=== PATIENT | male | born 1980 | race Caucasian/White ===

== ENCOUNTER 2020-05-22 10:08 | Emergency (ER) | payer SELFPAY ==
[2020-05-22 10:14] VITALS: BP 151/91; PULSE 59; RESP 20; TEMP 36.5; O2SAT 99
--- NOTE | 2020-05-22 10:30 | W.ED.GENAD ---
Discharge Plan Disposition Patient Disposition: HOME Condition: Stable Discharge Details Clinical Impression: Hydronephrosis, Epiploic appendagitis, Kidney stone Primary Care Provider: None,None ED Provider: Newton Nielson Home Meds and New Rx's Prescriptions: New tamsulosin [Flomax] 0.4 mg capsule 0.4 mg PO DAILY Qty: 5 RF: 0 naproxen [Naprosyn] 500 mg tablet 500 mg PO BID PRNQty: 20 RF: 0 Discharge Instructions Instructions: Kidney Stones (ED) Additional Instructions: Naprosyn and Flomax as directed. Plenty of fluids to avoid dehydration. Your stone is 6 mm and may or may not pass on its own. I have placed you on the urology list and I would like you to contact their office tomorrow for prompt outpatient reevaluation. Please watch for new or worsening symptoms and return to the ER for any concerns. We also discussed the incidental finding on your CAT scan of a epiploic appendagitis, I will give you a referral to surgery as well. Contact their office at your convenience. Referrals: Ceasar Galarza MD [ [facility] STAFF PHYSICIAN] - Cherri Saleh MD [ [facility] STAFF PHYSICIAN] - Medical Decision Making 39-year-old gentleman, denies past medical history, presents to the ER reporting 3-day history of left abdominal and flank discomfort. Denies any other symptoms whatsoever. Denies fever, recent travel, sick contacts, bad food exposure. He is a rather vague and poor historian. He appears in no acute distress. Abdomen with diffuse discomfort but mild in nature to moderate palpation, certainly no rebound, rigidity or guarding. Differential includes muscle skeletal strain, pancreatitis, bowel obstruction, renal stone, pyelonephritis, atypical appendicitis, diverticulitis, etc. Will obtain IV access, give IV fluid, obtain CBC, CMP, lipase, alcohol level, urinalysis and drug screen. Laboratory values reveal a white blood cell count of 13.85 hemoglobin 16.0 hematocrit 47.5 platelet count 197. Potassium 3.8 creatinine 1.31 with a GFR greater than 60. Glucose 162. Total bili 0.3. AST 13, LFTs otherwise unremarkable. Lipase 201. Urinalysis large blood, greater than 50 red cells. Work-up certainly concerning for potential renal stone. Will give 30 IV Toradol, renal CT colic will be obtained, will then reassess. CT imaging read by radiology as a 6 mm left UPJ stone causing mild hydronephrosis. Fatty density lesion adjacent to the distal descending colon suspicious for epiploic appendagitis. Please correlate clinically. Left nephrolithiasis. I did discuss the epiploic appendagitis with Dr. Brown. Nothing to be done for this incidental finding and will treat for the 6 mm stone. Will refer to surgery if continuation of pain. Will give a single dose of Flomax now. Patient received Toradol and fluid. Upon reevaluation he is pain-free. We discussed his findings including the incidental findings on his CT. I have placed him on the urology callback list and will give him the name and number of our urologist Dr. Galarza. Patient comfortable with this plan and has no additional questions or concerns. Will provide prescription of Naprosyn and Flomax. Lab Data Lab results reviewed: Yes I reviewed the patient's lab results. Lab results narrative: Laboratory Tests Range/Units 05/22/20 05/22/20 05/22/20 10:37 10:37 10:37 WBC (4.4-10.8) 10^3/uL 13.85 H RBC (4.36-5.78) 10^6/uL 4.92 Hgb (13.5-17.5) g/dL 16.0 Hct (40.0-50.0) % 47.5 MCV (80-95) fL 96.5 H MCH (27.0-33.0) pg 32.5 MCHC (32.0-36.0) % 33.7 RDW (11.8-14.1) % 11.7 L Plt Count (130-400) 10^3/uL 197 MPV (8.0-11.0) fL 10.7 Immature Gran % 0.4 Neutrophils % 85.1 Lymphocytes % 10.8 Monocytes % 3.1 Eosinophils % 0.4 Basophils % 0.2 Nucleated RBC % % 0 Absolute Neutrophils (1.2-6.7) 10^3/uL 11.79 H Absolute Lymphocytes (1.2-3.4) 10^3/uL 1.50 Absolute Monocytes (0.1-0.8) 10^3/uL 0.43 Absolute Eosinophils (0.0-0.7) 10^3/uL 0.06 Absolute Basophils (0.0-0.2) 10^3/uL 0.03 Sodium (136-145) mmol/L 139 Potassium (3.5-5.1) mmol/L 3.8 Chloride (98-107) mmol/L 105 Carbon Dioxide (21.0-32.0) mmol/L 28.8 Anion Gap (3-11) mmol/L 5.2 BUN (7-18) mg/dL 20 H Creatinine (0.70-1.30) mg/dL 1.31 H Estimated GFR/1.73 m2 (mL/min/1.73m2) >= 60.00 Glucose (74-106) mg/dL 162 H Calcium (8.5-10.1) mg/dL 9.0 Total Bilirubin (0.2-1.0) mg/dL 0.3 AST (15-37) U/L 13 L ALT (16-63) U/L 26 Alkaline Phosphatase (46-116) U/L 111 Total Protein (6.4-8.2) g/dL 7.8 Albumin (3.4-5.0) g/dL 3.9 Lipase (73-393) U/L 201 Urine Color (Yellow) Urine Clarity (Clear) Urine pH (5-8) Ur Specific Abbot (1.005-1.025) Urine Protein (Negative) mg/dL Urine Ketones (Negative) mg/dL Urine Blood (Negative) Urine Nitrite (Negative) Urine Bilirubin (Negative) Urine Urobilinogen (Up TO 0.2) EU/dL Ur Leukocyte Esterase (Negative) Urine RBC (0-2) HPF Urine WBC Ur Epithelial Cells Urine Crystals Urine Bacteria Urine Mucus Ur Culture Indicated? Urine Glucose (Negative) mg/dL Urine Opiates Screen (Negative) Urine Methadone Screen (Negative) Ur Barbiturates Screen (Negative) Ur Tricyclics Screen (Negative) Ur Amphetamines Screen (Negative) U Benzodiazepines Scrn (Negative) Urine Cocaine Screen (Negative) Ur THC Screen (Negative) Ethyl Alcohol (<3) mg/dL < 3.0 Range/Units 05/22/20 05/22/20 10:50 10:50 WBC (4.4-10.8) 10^3/uL RBC (4.36-5.78) 10^6/uL Hgb (13.5-17.5) g/dL Hct (40.0-50.0) % MCV (80-95) fL MCH (27.0-33.0) pg MCHC (32.0-36.0) % RDW (11.8-14.1) % Plt Count (130-400) 10^3/uL MPV (8.0-11.0) fL Immature Gran % Neutrophils % Lymphocytes % Monocytes % Eosinophils % Basophils % Nucleated RBC % % Absolute Neutrophils (1.2-6.7) 10^3/uL Absolute Lymphocytes (1.2-3.4) 10^3/uL Absolute Monocytes (0.1-0.8) 10^3/uL Absolute Eosinophils (0.0-0.7) 10^3/uL Absolute Basophils (0.0-0.2) 10^3/uL Sodium (136-145) mmol/L Potassium (3.5-5.1) mmol/L Chloride (98-107) mmol/L Carbon Dioxide (21.0-32.0) mmol/L Anion Gap (3-11) mmol/L BUN (7-18) mg/dL Creatinine (0.70-1.30) mg/dL Estimated GFR/1.73 m2 (mL/min/1.73m2) Glucose (74-106) mg/dL Calcium (8.5-10.1) mg/dL Total Bilirubin (0.2-1.0) mg/dL AST (15-37) U/L ALT (16-63) U/L Alkaline Phosphatase (46-116) U/L Total Protein (6.4-8.2) g/dL Albumin (3.4-5.0) g/dL Lipase (73-393) U/L Urine Color (Yellow) Dark yellow Urine Clarity (Clear) Cloudy Urine pH (5-8) 5.5 Ur Specific Abbot (1.005-1.025) >= 1.030 H Urine Protein (Negative) mg/dL 100 H Urine Ketones (Negative) mg/dL Negative Urine Blood (Negative) Large H Urine Nitrite (Negative) Negative Urine Bilirubin (Negative) Negative Urine Urobilinogen (Up TO 0.2) EU/dL 0.2 Ur Leukocyte Esterase (Negative) Negative Urine RBC (0-2) HPF >50 H Urine WBC Not Applicable Ur Epithelial Cells Not Applicable Urine Crystals Not Applicable Urine Bacteria Not Applicable Urine Mucus Not Applicable Ur Culture Indicated? No Urine Glucose (Negative) mg/dL Negative Urine Opiates Screen (Negative) Negative Urine Methadone Screen (Negative) Negative Ur Barbiturates Screen (Negative) Negative Ur Tricyclics Screen (Negative) Negative Ur Amphetamines Screen (Negative) Positive A U Benzodiazepines Scrn (Negative) Negative Urine Cocaine Screen (Negative) Negative Ur THC Screen (Negative) Positive A Ethyl Alcohol (<3) mg/dL HPI General Mode of arrival: ambulatory. Date/Time Provider Initiated Documentation: 05/22/20 10:09. Limitations to Documentation: no limitations. Information obtained by: patient. HPI Narrative: This is a 39-year-old gentleman who denies significant past medical history, presenting to the ER complaining of left-sided abdominal pain and flank pain for the past 3 days. Pain has progressively gotten worse, severe now. Denies any other symptoms such as fever, recent illness or trauma, nausea, vomiting, diarrhea, constipation, dysuria, hematuria, radiation of pain. He tells me he had similar abdominal pain approximately 1 year ago but it resolved on its own. His pain has been constant for the last 3 days, nothing makes it better or worse. He has not taken any [id number] medications for his symptomatic control. Patient is a rather vague historian, difficult to get him to engage in his HPI. He denies drug use. Reports occasional alcohol use. Related Data Home Medications Medication Instructions Recorded Confirmed naproxen [Naprosyn] 500 mg PO BID PRN #20 tab 05/22/20 tamsulosin [Flomax] 0.4 mg PO DAILY #5 cap 05/22/20 Previous Rx's Medication Instructions Recorded naproxen [Naprosyn] 500 mg PO BID PRN #20 tab 05/22/20 tamsulosin [Flomax] 0.4 mg PO DAILY #5 cap 05/22/20 Allergies Allergy/AdvReac Type Severity Reaction Status Date / Time No Known Allergies Allergy Unverified 05/22/20 10:16 General Stated Complaint: Abd Prob ANDERS: 3 Review of Systems Constitutional Constitutional: Denies fatigue, Denies fever(s) and Denies headache(s) ENT Ears, Nose, Mouth, and Throat: Denies headache(s) Cardiovascular Cardiovascular: Denies chest pain and Denies dyspnea Respiratory Respiratory: Denies cough and Denies dyspnea Gastrointestinal Gastrointestinal: Reports abdominal pain, Denies melena, Denies hematochezia, Denies constipation, Denies diarrhea, Denies nausea and Denies vomiting Genitourinary Genitourinary: Denies hematuria, Denies difficulty urinating, Denies dysuria, Denies testicular pain and Denies urinary frequency Musculoskeletal Musculoskeletal: Denies back pain Integumentary/Breasts Skin/Breast: Denies rash Neurologic Neurologic: Denies headache(s) Endocrine Endocrine: Denies fatigue [facility] Medical History No active medical problems Surgical History No history of previous surgery Social History Smoking/Tobacco Use Status: Current every day Tobacco Type: cigarettes Smoking risk assessment performed?: Yes Alcohol Intake: current Alcohol Intake frequency: a few times a month Drug use: Daily Substance use type: marijuana Do you feel safe at home: Yes Exam Const General: cooperative, healthy appearing and no acute distress Orientation: alert, awake and oriented x3 HENMT Head: normal to inspection, normocephalic and atraumatic Mouth: moist mucous membranes Eyes General: appearance normal, both eyes and all related structures Conjunctivae: conjunctivae normal Sclera: sclerae normal Neck Neck: normal visual inspection, full ROM, no meningeal signs, trachea midline and supple Resp Effort & Inspection: normal respiratory effort and able to speak in complete sentences Auscultation: clear to auscultation bilaterally Cardio Rate: regular rate Rhythm: regular rhythm GI Inspection: normal to inspection Palpation: soft, not firm, no guarding, no pulsatile masses and tender (Diffuse left-sided abdomen and flank) with no rebound tenderness Auscultation: normal bowel sounds Back/Spine/Pelvis Back: No back tenderness Skin General skin exam: no rashes or lesions noted Neuro General: patient alert, patient awake, moves all extremities and no focal motor deficits Cognition: normal cognition Speech: speech normal Gait: normal gait Sensory Exam: no sensory deficits noted Extrem General: normal to inspection, full ROM, capillary refill normal, no pedal edema and no calf tenderness Psych Appearance: grossly normal Mental Status: mental status grossly normal Course Vital Signs Vital signs: Vital Signs Temperature 36.5 C 05/22/20 10:14 Pulse 59 L 05/22/20 10:14 Respiratory Rate 20 05/22/20 10:14 Blood Pressure 151/91 H 05/22/20 10:14 Pulse Oximetry 99 05/22/20 10:14 Temperature 36.5 C 05/22/20 10:14 Temperature Source Skin 05/22/20 10:14 Pulse 59 L 05/22/20 10:14 Respiratory Rate 20 05/22/20 10:14 Respiratory Effort Non-Labored 05/22/20 10:21 Blood Pressure 151/91 H 05/22/20 10:14 Blood Pressure Position Sitting 05/22/20 10:14 Pulse Oximetry 99 05/22/20 10:14 Oxygen Delivery Method Room Air 05/22/20 10:14 Oxygen Flow Rate 0 05/22/20 10:14 Pain Level 9 05/22/20 10:21 Comment 05/22/20 10:14
[2020-05-22 10:46] LABS: Abs Immature Grans 0.05 10^3/uL (0.0-0.06); Absolute Basophil Count 0.03 10^3/uL (0.0-0.2); Absolute Monocyte Count 0.43 10^3/uL (0.1-0.8); Basophils % 0.2; Eosinophils % 0.4; HCT 47.5 % (40.0-50.0); Immature Grans % 0.4; Lymphocytes % 10.8; MCH 32.5 pg (27.0-33.0); MCHC 33.7 % (32.0-36.0); MCV 96.5 fL (80-95); MPV 10.7 fL (8.0-11.0); Monocytes % 3.1; Neutrophils % 85.1; Nucleated RBC 0 %; Platelet Count 197 10^3/uL (130-400); RBC 4.92 10^6/uL (4.36-5.78); RDW 11.7 % (11.8-14.1); RDW-SD 41.6 fL; WBC 13.85 10^3/uL (4.4-10.8)
[2020-05-22 10:50] LABS: Absolute Eosinophil Count 0.06 10^3/uL (0.0-0.7); Absolute Neutrophil Count 11.79 10^3/uL (1.2-6.7)
[2020-05-22 10:57] LABS: ALT 26 U/L (16-63); AST 13 U/L (15-37); Albumin 3.9 g/dL (3.4-5.0); Alkaline Phosphatase 111 U/L (46-116); Anion Gap 5.2 mmol/L (3-11); BUN 20 mg/dL (7-18); Bilirubin, Total 0.3 mg/dL (0.2-1.0); CO2 28.8 mmol/L (21.0-32.0); CREATININE 1.31 mg/dL (0.70-1.30); Chloride 105 mmol/L (98-107); Glucose 162 mg/dL (74-106); Lipase 201 U/L (73-393); Potassium 3.8 mmol/L (3.5-5.1); Sodium 139 mmol/L (136-145); Total Protein 7.8 g/dL (6.4-8.2)
[2020-05-22 11:03] LABS: Bilirubin Negative (Negative); Blood Large (Negative); Clarity Cloudy (Clear); Glucose Negative (Negative); Ketones Negative (Negative); Leukocyte Esterase Negative (Negative); Nitrite Negative (Negative); Specific Gravity >= 1.030 (1.005-1.025); Urobilinogen 0.2 EU/dL (Up TO 0.2); pH 5.5 (5-8)
[2020-05-22 11:13] LABS: ETHANOL BLOOD < 3.0 mg/dL (<3)
[2020-05-22 11:14] LABS: *AMPHETAMINES SCREEN URINE POSITIVE (Negative); *BARBITURATES SCREEN URINE Negative (Negative); *BENZODIAZEPINES SCREEN URINE Negative (Negative); Cannabinoids THC POSITIVE (Negative); Cocaine Screen,Urine Negative (Negative); METHADONE URINE SCREEN Negative (Negative); OPIATES URINE SCREEN Negative (Negative); Tricyclic Antidepressants Negative (Negative)
[2020-05-22 11:18] LABS: RBC >50 HPF (0-2)
[2020-05-22 11:19] LABS: C & S Indicated? No
--- NOTE | 2020-05-22 11:30 | DI.CT_ITS ---
EXAM: CT RENAL COLIC WO CLINICAL HISTORY: Left-sided pain, hematuria. TECHNIQUE: Imaging Protocol: Axial computed tomography images with coronal and sagittal reformatted images were created and reviewed. COMPARISON: No exams were available for comparison FINDINGS: ABDOMEN: Lung Bases: Normal where visualized. Liver: Normal density. No measurable mass. Gallbladder and biliary tract: No radiodense calculus or biliary ductal dilation. Pancreas: Normal density, no abnormal calcifications or inflammatory process. Spleen: Normal. Kidneys: Normal size, contour and axis.There is a 6 mm left UPJ stone causing mild hydronephrosis. L eft nephrolithiasis is present. Adrenal glands: No mass is seen. Lymph nodes: Non-specific mildly enlarged pelvic lymph nodes. The largest measures 1 cm in short jennifer meter. Abdominal Aorta: Abdominal portion non-dilated. PELVIS: Bladder:Symmetric distention, no gross wall thickening. Bowel: No obstruction or bowel wall thickening. Appendix is unremarkable. There is a 3.8 x 2.1 cm fa t density lesion adjacent to the distal descending colon with mild surrounding inflammation suggestin g of epiploic appendagitis. Peritoneal cavity: No ascites, collection or mesenteric inflammatory response. No free air. Reproductive organs: Within normal limits. Bones: Within normal limits. Soft Tissues: Within normal limits. IMPRESSION: 1. 6 mm left UPJ stone causing mild hydronephrosis. 2. Fat density lesion adjacent to the distal descending colon suspicious for epiploic appendagitis. Please correlate clinically. 3. Left nephrolithiasis. 4. Findings were discussed with the emergency department on the date of the examination. RADIATION DOSE DELIVERED: 656.72mGy.cm Total DLP DATA REPOSITORY: All CT scans at this facility are submitted to the National Radiology Data Registry (NRDR) Dose Index Registry (DIR) with the [employer] ([employer]). RADIATION OPTIMIZATION: All CT scans at this facility use at least one of these dose optimization te chniques: automated exposure control; mA and/or kV adjustment per patient size (includes targeted exa ms where dose is matched to clinical indication); or iterative reconstruction.
[2020-05-22] MEDS: Ketorolac 30 MG/ML VIAL IVP (11:42)
[2020-05-22] MEDS: Normal Saline Flush 10 ML SYR IVP (11:43)
[2020-05-22] MEDS: Normal Saline 1,000 ML 1000 ML IV (11:43)
[2020-05-22 13:19] VITALS: BP 113/62; PULSE 83; RESP 20; TEMP 36.6; O2SAT 99
[2020-05-22 14:09] VITALS: BP 120/88; PULSE 80; RESP 16; TEMP 36.6; O2SAT 98
[2020-05-22] MEDS: Tamsulosin 0.4 MG CAPCR PO (14:11)
--- NOTE | 2020-05-22 17:40 | NUR.NOTE ---
referral to [facility].Nursing Note:
== END 2020-05-22 14:10 | disposition home or self-care (01) ==
PROVIDERS: Emergency Provider Physician Assistant
DX: N13.2 Hydronephrosis with renal and ureteral calculous obstruction (principal); K63.89 Other specified diseases of intestine
CPT/HCPCS: 80053; 80307; 83690; 96361; 96374; 99285; 74176; 80320; 81003; 81015; 85025; 99284; J1885

== ENCOUNTER 2020-05-29 11:21 | Emergency (ER) | payer SELFPAY ==
[2020-05-29 11:29] VITALS: BP 140/95; PULSE 86; RESP 18; TEMP 36.4; O2SAT 98
[2020-05-29 11:42] LABS: Bilirubin Negative (Negative); Blood Moderate (Negative); Clarity Clear (Clear); Glucose Negative (Negative); Ketones Negative (Negative); Leukocyte Esterase Negative (Negative); Nitrite Negative (Negative); Specific Gravity 1.025 (1.005-1.025); Urobilinogen 0.2 EU/dL (Up TO 0.2)
--- NOTE | 2020-05-29 11:45 | DI.US_ITS ---
EXAM: US RENAL CLINICAL HISTORY: known stone, pain returning TECHNIQUE: Ultrasound of both kidneys performed using standard protocol. COMPARISON: CT CT RENAL COLIC WO from 05/22/[address] RENAL COLIC WO from 05/22/2020 FINDINGS: RIGHT KIDNEY: Measures 10.3 cm in length. No cysts evident. Normal cortical thickness and corticomedullary differen tiation .No solid masses No intrarenal calculi nor hydronephrosis. LEFT KIDNEY: Measures 11.5 cm in length. No cysts evident. There is mild-moderate hydronephrosis and ipsilateral hydroureter ureter diameter 7 millimeters. The left UPJ calculus evident on the recent CT scan of 05/22/2020 is not seen at this location.. The left ureterovesical junction does not appear to been imaged but the left ureterovesical jet is not i dentified. The right ureterovesical jet is identified. URINARY BLADDER: Prevoid volume is 71 cc Postvoid volume is 0 cc No evidence of bladder mass nor diverticuli. IMPRESSION: 1. No significant ultrasound findings in the right kidney 2. Mild-moderate unilateral left hydronephrosis and hydroureter. Given the absence of visualization of the left ureterovesical jet, the calculus has most probably migrated distally into the pelvis 2 l evel not seen with ultrasound because of overlying bowel gas. There is no obvious calculus evident i n the urinary bladder lumen. No obvious clots in the urinary bladder lumen. DATA REPOSITORY:
[2020-05-29 12:00] LABS: Bacteria Few HPF (Negative); C & S Indicated? No; Casts Negative LPF (Negative); Crystals Negative HPF (Negative); Epithelial Cells Negative HPF (Negative); Mucus Trace (Negative); Other Cells Negative (Negative); RBC >50 HPF (0-2); WBC Negative HPF (0-5)
[2020-05-29] MEDS: Ketorolac 30 MG/ML VIAL IVP (12:13)
[2020-05-29] MEDS: Normal Saline 1,000 ML 1000 ML IV (12:13)
[2020-05-29 12:16] LABS: Abs Immature Grans 0.07 10^3/uL (0.0-0.06); Absolute Basophil Count 0.04 10^3/uL (0.0-0.2); Absolute Eosinophil Count 0.01 10^3/uL (0.0-0.7); Absolute Neutrophil Count 11.93 10^3/uL (1.2-6.7); Basophils % 0.3; Eosinophils % 0.1; HCT 44.6 % (40.0-50.0); HGB 15.2 g/dL (13.5-17.5); Immature Grans % 0.5; Lymphocytes % 10.4; MCH 31.7 pg (27.0-33.0); MCHC 34.1 % (32.0-36.0); MCV 93.1 fL (80-95); MPV 10.3 fL (8.0-11.0); Monocytes % 6.2; Neutrophils % 82.5; Nucleated RBC 0 %; Platelet Count 235 10^3/uL (130-400); RBC 4.79 10^6/uL (4.36-5.78); RDW 11.3 % (11.8-14.1); RDW-SD 38.6 fL; WBC 14.46 10^3/uL (4.4-10.8)
[2020-05-29 12:28] LABS: ALT 18 U/L (16-63); AST 10 U/L (15-37); Albumin 3.3 g/dL (3.4-5.0); Alkaline Phosphatase 100 U/L (46-116); Anion Gap 6.1 mmol/L (3-11); BUN 14 mg/dL (7-18); Bilirubin, Total 0.4 mg/dL (0.2-1.0); CO2 27.9 mmol/L (21.0-32.0); CREATININE 1.4 mg/dL (0.70-1.30); Calcium 8.8 mg/dL (8.5-10.1); Chloride 100 mmol/L (98-107); Estimated GFR 55.85 (mL/min/1.73m2); Glucose 114 mg/dL (74-106); Lipase 121 U/L (73-393); Potassium 4.1 mmol/L (3.5-5.1); Sodium 134 mmol/L (136-145); Total Protein 7.4 g/dL (6.4-8.2)
[2020-05-29 13:17] VITALS: BP 144/89; PULSE 71; RESP 16; TEMP 36.4; O2SAT 100
--- NOTE | 2020-05-29 13:56 | ED.GENADUL_ITS ---
Discharge Plan Disposition Patient Disposition: HOME Condition: Improving Discharge Details Clinical Impression: Kidney stone, Hydronephrosis Primary Care Provider: None,None ED Provider: Newton Nielson Home Meds and New Rx's Prescriptions: New tamsulosin [Flomax] 0.4 mg capsule 0.8 mg PO DAILY 5 Days Qty: 10 RF: 0 ketorolac 10 mg tablet 10 mg PO TID PRN5 Days RF: 0 Discontinued tamsulosin [Flomax] 0.4 mg capsule 0.4 mg PO DAILY Qty: 5 RF: 0 naproxen [Naprosyn] 500 mg tablet 500 mg PO BID PRNQty: 20 RF: 0 Discharge Instructions Instructions: Kidney Stones (ED) Additional Instructions: Your laboratories today do not appear to be significantly changed when compared to 1 week ago. Your ultrasound reveals increasing hydronephrosis, the stone is not visualized. There is no signs of infection. You responded very nicely to the IV Toradol and fluid. I am writing a prescription for additional Flomax and oral Toradol, take as directed. Plenty of fluids to avoid dehydration. Please watch for new or worsening symptoms and return to the ER for any concerns. I personally spoke with urology and you have an appointment tomorrow morning at 1130. Referrals: Anabel Lorenzo, REBA [NURSE PRACTITIONER] - Discharge Data Discharge Date/Time-TO BE ENTERED AT DEPARTURE: 05/29/20 14:30 Medical Decision Making 39-year-old gentleman, denies significant past medical history, seen in the ER 1 week ago and diagnosed with a 6 mm left UPJ stone. Responded well to Toradol in the ER. He has taken his Flomax as directed, his prescription is out currently. He has been taking [id number] anti-inflammatories as well. Not scheduled to see urology until 18 June. Reports that his pain never went completely away but now over the past couple of days after finishing his Flomax he feels as though his pain is returning and worsening however not as severe as it was last week. He denies recent illness or trauma. No other concerns or complaints at this time. I would like to obtain IV access, give IV Toradol as he responded well to this in the past, IV fluid, obtain CBC, CMP, urinalysis and given his recent CT, will obtain ultrasound instead. CBC reveals a white blood cell count of 14.46, near what it was 1 week ago. No evidence of anemia. Platelet count 235. Creatinine 1.4 with an estimated GFR of 55.85, this is near what it was 1 week ago as well. Urinalysis reveals moderate blood greater than 50 red cells, no signs of infection. Renal ultrasound read by radiology as mild-moderate unilateral left hydronephrosis and hydroureter. Given the absence of visualization of the left ureterovesical jet, the calculus has most probably migrated distally into the pelvis Upon reevaluation patient has responded nicely to the Toradol, reports his pain is essentially completely gone. Given his repeat visit, worsening hydronephrosis, and unfortunately no visit with urology until the 17th of next month. I will reach out to urology to see if they have any additional recommendations and if I can expedite outpatient care. I was able to speak with PEDIATRIC PHYSICIAN Anabel Lorenzo, recommends increasing Flomax to 0.8, p.o. Toradol, and she will see the patient tomorrow at 1130 to reevaluate and likelihood of intervention. I discussed this plan with patient, he is comfortable with plan and has no additional questions or concerns. As above he responded well to Toradol and is essentially asymptomatic upon discharge. Medical Records Medical records reviewed: Yes I reviewed the patient's medical records. Lab Data Lab results reviewed: Yes I reviewed the patient's lab results. Lab results narrative: Laboratory Tests Range/Units 05/29/20 05/29/20 05/29/20 11:36 12:02 12:02 WBC (4.4-10.8) 10^3/uL 14.46 H RBC (4.36-5.78) 10^6/uL 4.79 Hgb (13.5-17.5) g/dL 15.2 Hct (40.0-50.0) % 44.6 MCV (80-95) fL 93.1 MCH (27.0-33.0) pg 31.7 MCHC (32.0-36.0) % 34.1 RDW (11.8-14.1) % 11.3 L Plt Count (130-400) 10^3/uL 235 MPV (8.0-11.0) fL 10.3 Immature Gran % 0.5 Neutrophils % 82.5 Lymphocytes % 10.4 Monocytes % 6.2 Eosinophils % 0.1 Basophils % 0.3 Nucleated RBC % % 0 Absolute Neutrophils (1.2-6.7) 10^3/uL 11.93 H Absolute Lymphocytes (1.2-3.4) 10^3/uL 1.50 Absolute Monocytes (0.1-0.8) 10^3/uL 0.90 H Absolute Eosinophils (0.0-0.7) 10^3/uL 0.01 Absolute Basophils (0.0-0.2) 10^3/uL 0.04 Sodium (136-145) mmol/L 134 L Potassium (3.5-5.1) mmol/L 4.1 Chloride (98-107) mmol/L 100 Carbon Dioxide (21.0-32.0) mmol/L 27.9 Anion Gap (3-11) mmol/L 6.1 BUN (7-18) mg/dL 14 Creatinine (0.70-1.30) mg/dL 1.4 H Estimated GFR/1.73 m2 (mL/min/1.73m2) 55.85 Glucose (74-106) mg/dL 114 H Calcium (8.5-10.1) mg/dL 8.8 Total Bilirubin (0.2-1.0) mg/dL 0.4 AST (15-37) U/L 10 L ALT (16-63) U/L 18 Alkaline Phosphatase (46-116) U/L 100 Total Protein (6.4-8.2) g/dL 7.4 Albumin (3.4-5.0) g/dL 3.3 L Lipase (73-393) U/L 121 Urine Color (Yellow) Yellow Urine Clarity (Clear) Clear Urine pH (5-8) 7.0 Ur Specific [place] (1.005-1.025) 1.025 Urine Protein (Negative) mg/dL 30 H Urine Ketones (Negative) mg/dL Negative Urine Blood (Negative) Moderate H Urine Nitrite (Negative) Negative Urine Bilirubin (Negative) Negative Urine Urobilinogen (Up TO 0.2) EU/dL 0.2 Ur Leukocyte Esterase (Negative) Negative Urine RBC (0-2) HPF >50 H Urine WBC (0-5) HPF Negative Ur Epithelial Cells (Negative) HPF Negative Urine Crystals (Negative) HPF Negative Urine Bacteria (Negative) HPF Few Urine Casts (Negative) LPF Negative Urine Mucus (Negative) Trace Urine Other (Negative) Negative Ur Culture Indicated? No Urine Glucose (Negative) mg/dL Negative HPI General Mode of arrival: ambulatory . Date/Time Provider Initiated Documentation: 05/29/20 11:28 . Limitations to Documentation: no limitations . Information obtained by: patient . HPI Narrative: This is a 39-year-old gentleman who presents to the ER denying significant past medical history. He was seen in the ER on the , actually by me, diagnosed with a left 6 mm UPJ stone, and outpatient neurology follow-up. He states that he is not scheduled to be seen until the by urology. He finished taking his Flomax as directed and has been using [id number] anti-inflammatory medication. He states over the past couple of days his discomfort has returned, not as severe as it was during his initial visit. He denies recent illness or trauma. Denies any fever, chest pain, shortness of breath, nausea, vomiting, dysuria, hematuria. He reports that his pain is in his left back-flank, wraps to his left lower abdomen and groin. Denies dysuria, hematuria, testicle pain or scrotal swelling. Related Data Home Medications Medication Instructions Recorded Confirmed ketorolac 10 mg PO TID PRN 5 Days tab 05/29/20 tamsulosin [Flomax] 0.8 mg PO DAILY 5 Days #10 cap 05/29/20 Previous Rx's Medication Instructions Recorded ketorolac 10 mg PO TID PRN 5 Days tab 05/29/20 tamsulosin [Flomax] 0.8 mg PO DAILY 5 Days #10 cap 05/29/20 Allergies Allergy/AdvReac Type Severity Reaction Status Date / Time No Known Allergies Allergy Unverified 05/29/20 11:31 General Stated Complaint: Abd Prob ANDERS: 3 Review of Systems Constitutional Constitutional: Reports fatigue, Denies fever(s) and Denies weakness Cardiovascular Cardiovascular: Denies chest pain and Denies dyspnea Respiratory Respiratory: Denies cough and Denies dyspnea Gastrointestinal Gastrointestinal: Reports abdominal pain, Denies constipation, Denies diarrhea, Denies nausea and Denies vomiting Genitourinary Genitourinary: Denies hematuria and Denies dysuria Musculoskeletal Musculoskeletal: Reports back pain, Denies numbness and Denies tingling Integumentary/Breasts Skin/Breast: Denies erythema and Denies rash Neurologic Neurologic: Denies numbness, Denies tingling and Denies weakness Endocrine Endocrine: Reports fatigue [facility] Medical History No active medical problems Surgical History No history of previous surgery Social History Smoking/Tobacco Use Status: Current every day Tobacco Type: cigarettes Smoking risk assessment performed?: Yes Alcohol Intake: current Alcohol Intake frequency: a few times a month Drug use: Daily Substance use type: marijuana Do you feel safe at home: Yes Exam Const General: cooperative, healthy appearing, comfortable and no acute distress Orientation: alert, awake and oriented x3 HENMT Head: normal to inspection, normocephalic and atraumatic Eyes General: appearance normal, both eyes and all related structures Conjunctivae: conjunctivae normal Sclera: sclerae normal Neck Neck: normal visual inspection, full ROM, no meningeal signs, trachea midline and supple Resp Effort & Inspection: normal respiratory effort and able to speak in complete sentences Auscultation: clear to auscultation bilaterally Cardio Rate: regular rate Rhythm: regular rhythm GI Inspection: normal to inspection Palpation: soft, not firm, no guarding, no pulsatile masses and tender (Diffuse left side of abdomen and flank) with no rebound tenderness Auscultation: normal bowel sounds Back/Spine/Pelvis Back: CVA tenderness (Left-sided) and back tenderness (Diffuse left lumbar) Skin General skin exam: no rashes or lesions noted Neuro General: patient alert, patient awake, moves all extremities and no focal motor deficits Cognition: normal cognition Speech: speech normal Gait: normal gait Sensory Exam: no sensory deficits noted Extrem General: normal to inspection, full ROM and capillary refill normal Psych Appearance: grossly normal Mental Status: mental status grossly normal Course Vital Signs Vital signs: Vital Signs Temperature 36.4 C L 05/29/20 11:29 Pulse 86 05/29/20 11:29 Respiratory Rate 18 05/29/20 11:29 Blood Pressure 140/95 H 05/29/20 11:29 Pulse Oximetry 98 05/29/20 11:29 Temperature 36.4 C L 05/29/20 13:17 Temperature Source Temporal Artery Scan 05/29/20 13:17 Pulse 71 05/29/20 13:17 Respiratory Rate 16 05/29/20 13:17 Respiratory Effort Non-Labored 05/29/20 11:33 Blood Pressure 144/89 H 05/29/20 13:17 Blood Pressure Position Sitting 05/29/20 11:29 Pulse Oximetry 100 05/29/20 13:17 Oxygen Delivery Method Room Air 05/29/20 13:17 Oxygen Flow Rate 0 05/29/20 13:17 Pain Level 10 05/29/20 11:29 Lab/Test Results Lab/Test Results: Laboratory Tests Range/Units 05/29/20 05/29/20 05/29/20 11:36 12:02 12:02 WBC (4.4-10.8) 10^3/uL 14.46 H RBC (4.36-5.78) 10^6/uL 4.79 Hgb (13.5-17.5) g/dL 15.2 Hct (40.0-50.0) % 44.6 MCV (80-95) fL 93.1 MCH (27.0-33.0) pg 31.7 MCHC (32.0-36.0) % 34.1 RDW (11.8-14.1) % 11.3 L Plt Count (130-400) 10^3/uL 235 MPV (8.0-11.0) fL 10.3 Immature Gran % 0.5 Neutrophils % 82.5 Lymphocytes % 10.4 Monocytes % 6.2 Eosinophils % 0.1 Basophils % 0.3 Nucleated RBC % % 0 Absolute Neutrophils (1.2-6.7) 10^3/uL 11.93 H Absolute Lymphocytes (1.2-3.4) 10^3/uL 1.50 Absolute Monocytes (0.1-0.8) 10^3/uL 0.90 H Absolute Eosinophils (0.0-0.7) 10^3/uL 0.01 Absolute Basophils (0.0-0.2) 10^3/uL 0.04 Sodium (136-145) mmol/L 134 L Potassium (3.5-5.1) mmol/L 4.1 Chloride (98-107) mmol/L 100 Carbon Dioxide (21.0-32.0) mmol/L 27.9 Anion Gap (3-11) mmol/L 6.1 BUN (7-18) mg/dL 14 Creatinine (0.70-1.30) mg/dL 1.4 H Estimated GFR/1.73 m2 (mL/min/1.73m2) 55.85 Glucose (74-106) mg/dL 114 H Calcium (8.5-10.1) mg/dL 8.8 Total Bilirubin (0.2-1.0) mg/dL 0.4 AST (15-37) U/L 10 L ALT (16-63) U/L 18 Alkaline Phosphatase (46-116) U/L 100 Total Protein (6.4-8.2) g/dL 7.4 Albumin (3.4-5.0) g/dL 3.3 L Lipase (73-393) U/L 121 Urine Color (Yellow) Yellow Urine Clarity (Clear) Clear Urine pH (5-8) 7.0 Ur Specific [place] (1.005-1.025) 1.025 Urine Protein (Negative) mg/dL 30 H Urine Ketones (Negative) mg/dL Negative Urine Blood (Negative) Moderate H Urine Nitrite (Negative) Negative Urine Bilirubin (Negative) Negative Urine Urobilinogen (Up TO 0.2) EU/dL 0.2 Ur Leukocyte Esterase (Negative) Negative Urine RBC (0-2) HPF >50 H Urine WBC (0-5) HPF Negative Ur Epithelial Cells (Negative) HPF Negative Urine Crystals (Negative) HPF Negative Urine Bacteria (Negative) HPF Few Urine Casts (Negative) LPF Negative Urine Mucus (Negative) Trace Urine Other (Negative) Negative Ur Culture Indicated? No Urine Glucose (Negative) mg/dL Negative
[2020-05-29 14:34] VITALS: BP 137/73; PULSE 70; RESP 16; TEMP 37.1; O2SAT 99
== END 2020-05-29 14:30 | disposition home or self-care (01) ==
PROVIDERS: Emergency Provider Physician Assistant
DX: N13.2 Hydronephrosis with renal and ureteral calculous obstruction (principal); N13.4 Hydroureter
CPT/HCPCS: 36415; 76770; 80053; 83690; 96374; 99284; 81003; 81015; 85025; J1885